=== PATIENT | male | born 1955 | race Caucasian/White ===

== ENCOUNTER 2022-06-22 04:03 | Emergency (ER) | payer OTHER, MEDICARE, SELFPAY ==
--- NOTE | ~2022-06-22 | CT_ITS ---
EXAMINATION: CT ABDOMEN AND PELVIS WITH CONTRAST CLINICAL INFORMATION: Lower abdomen pain. Clinical concern for diverticulitis COMPARISON: None available. TECHNIQUE: Multidetector volumetric images were obtained from the superior aspect of the liver through the pubic symphysis following administration 85 mL of Omnipaque 350 intravenous contrast. Sagittal and coronal reformatted images were obtained on the technologist's workstation. Oral contrast: No This CT examination was performed using dose optimization techniques as appropriate, variously including the following: *Automated exposure control *Adjustment of mA and/or kV according to patient size (this includes techniques or standardized protocols for targeted exams where dose is matched to indication/reason for exam; i.e. extremities or head) *Use of iterative reconstruction technique DLP: 814 mGy-cm FINDINGS: LUNG BASES: No suspicious abnormality in the visualized lower chest LIVER, GALLBLADDER, AND BILIARY TREE: There is a 0.6 cm low attenuating lesion close to the capsular surface in the posterolateral aspect of hepatic segment 6 (series 3, image 25). This is too small to characterize. In the absence of underlying chronic liver disease or known primary malignancy this does not require any further evaluation. There is no opaque gallstone. No biliary dilation PANCREAS: No suspicious abnormality SPLEEN: Within normal limits ADRENAL GLANDS: Mild generalized prominence of the adrenal glands. This could be related to hyperplasia. KIDNEYS AND URETERS: There is equivocal mild fullness of the intrarenal collecting system on the left. There is a punctate calcification in the retroperitoneum on the left (series 4, image 388). This is close to the expected region of the ureter but could be a phlebolith. There is equivocal slight decrease in the intensity of the nephrogram on the left relative to the right. This is not a definite finding There is a 0.2 cm nonobstructing calculus at the junction of the upper pole and interpolar left kidney 11.6 cm from the skin There are multiple circumscribed small round low attenuating masses in each kidney. Statistically these represent cysts. No suspicious solid renal mass. There is some perinephric fat stranding greater on the left BLADDER: The bladder wall is thickened. The bladder floor is indented by the prostate GASTROINTESTINAL TRACT: There is gas and fecal residue throughout the colon. No localized pericolonic fat stranding. There are some sigmoid diverticula. There is no definite evidence of an abscess or CT evidence of acute appendicitis. There are some mildly to moderately distended fluid-filled small bowel loops without a definite zone of transition. No definite abnormality of the stomach. There is a probable diverticulum in the medial aspect of the second portion of the duodenum ABDOMINAL WALL: No significant hernia is appreciated. LYMPH NODES: There are no measurably enlarged abdominal or pelvic lymph nodes VASCULAR: There is no abdominal aortic aneurysm. The portal vein enhances. The central portion of the visceral branches of the aorta opacify. PELVIC VISCERA: The prostate is enlarged and indents upon the bladder. OSSEOUS STRUCTURES: No suspicious focal lesion CT/CT abdomen pelvis w IV con IMPRESSION: There are no convincing acute findings. There are some equivocal subtle findings. There are some nonspecific dilated small bowel loops. No evidence of high-grade obstruction or ischemia. There is a punctate nonobstructing left renal calculus. There is a punctate calcification in the left retroperitoneum near the expected region of the ureter. There is slight perinephric fat stranding on the left and equivocal diminished nephrogram on the left. Correlate with any evidence of recent stone passage Fleischner guidelines were followed.
[2022-06-22 04:51] LABS: Basophils Absolute Auto 0.1 X10*3/uL (0.0-0.2); Basophils Percent Auto 0.4 % (0-2); Eosinophils Percent Auto 0.2 % (0-4); Hematocrit 54.6 % (42.0-52.0); Hemoglobin 19.1 g/dl (14.0-18.0); Imm Gran Pct Auto 0.7 % (0.0-0.4); Lymphocytes Absolute Auto 1.3 X10*3/uL (1.2-4.9); Lymphocytes Percent Auto 9.2 % (20-40); MANUAL DIFF FLAG NO; Mean Corpuscular Hemoglobin 29.8 pg (27.0-33.0); Mean Corpuscular Volume 85.3 fL (80.0-98.0); Mean Platelet Volume 10.2 fL (9.4-12.4); Monocytes Percent Auto 6.7 % (2-11); Neutrophils Absolute Auto 12.1 x10*3/uL (2.0-8.3); Neutrophils Percent Auto 82.8 % (45-73); Platelet Count 221 X10*3/uL (160-400); Red Cell Distribution Width 13.4 % (11.0-16.0); White Blood Count 14.6 X10*3/uL (4.8-10.8)
[2022-06-22 05:16] LABS: Anion Gap 17 (12-20); Blood Urea Nitrogen 20 mg/dL (9-16); Calcium 9.3 mg/dL (8.4-10.2); Carbon Dioxide 19 mmol/L (22-29); Chloride 103 mmol/L (96-108); Estimated Glomerular Filt Rate 59; Glucose Random 188 mg/dL (60-115); Potassium 4.6 mmol/L (3.3-5.1); Sodium 134 mmol/L (135-145)
[2022-06-22 05:17] VITALS: BP 140/71; PULSE 63; RESP 22; TEMP 36.7; O2SAT 96; BMI 36.5
[2022-06-22 05:35] VITALS: BP 197/97; PULSE 68; RESP 18; TEMP 37; O2SAT 95
[2022-06-22] MEDS: ondansetron HCL 4 MG/2 ML VIAL IVPUSH (06:18)
[2022-06-22] MEDS: Morphine Sulfate 4 MG/ML CARTRIDGE IVPUSH (06:18)
[2022-06-22] MEDS: 0.9 % Sodium Chloride 1,000 ML 999 ML IV (06:18)
[2022-06-22 06:29] LABS: Alanine Aminotransferase 32 U/L (0-40); Albumin Level 4.2 g/dL (3.5-5.0); Alkaline Phosphatase 63 U/L (39-117); Aspartate Amino Transferase 18 U/L (5-37); Bilirubin Direct 0.2 mg/dL (0.0-0.5); Bilirubin Total 0.7 mg/dL (0.0-1.0); Lipase 44 U/L (8-78); Total Protein 6.8 g/dL (6.5-8.0)
[2022-06-22 06:40] LABS: Lactic Acid 1.5 mmol/L (0.5-2.0)
--- NOTE | 2022-06-22 07:05 | ED_ITS ---
HPI - Abdominal Pain General Chief Complaint: Abdominal Pain Stated Complaint: stomach pain Time Seen by Provider: 06/22/22 06:33 Source: patient and RN notes reviewed Mode of arrival: ambulatory Limitations: no limitations History of Present Illness HPI narrative: This is a [id number]-male, with a past medical history of hypertension, hyperlipidemia, and CVA, who presents to the emergency department with compla ints of left sided abdominal pain which started at 06:00PM last night. Patient reports that the abdominal pain is constant, and worsens with positional changes. He feels as though he is bloated. He denies any fevers or chills. Admits to having intermittent nausea, denies vomiting. Last BM was yesterday, small and somewhat soft. Denies any hx of abdominal surgeries. His last colonoscopy was greater than 10 years ago, but was normal. He drinks alcohol very rarely. He has a >40 pack year history. Denies headache, dizziness, chest pain, palpitations, shortness of breath. No other complaints or concerns at this time. MD elicited complaint: abdominal pain Pertinent past history: constipation Onset (ago): hour(s) Pain Consistency: constant Location: LUQ Severity: severe Quality: aching and fullness Radiation: none Migration to: no migration Exacerbating factors: movement Relieving factors: rest Associated symptoms: constipation Related Data Allergies Allergy/AdvReac Type Severity Reaction Status Date / Time No Known Allergies Allergy Unverified 11/07/19 15:41 [No Known Allergies*] Review of Systems Review of Systems Constitutional: No Weight loss, No Fever, No Chills, No Night Sweats, No Fatigue, No Malaise ENT/Mouth: No Hearing loss, No Ear Pain, No Nasal Congestion, No Sinus Pain, No Hoarseness, No sore throat, No Rhinorrhea, No Swallowing Difficulty Eyes: No Eye Pain, No Swelling, No Redness, No Foreign Body, No Discharge, No Vision Changes Cardiovascular: No Chest Pain, No SOB, No Dyspnea on Exertion, No Orthopnea, No Edema, No Palpitations Respiratory: No Cough, No Sputum, No Wheezing, No Smoke Exposure, No Dyspnea Gastrointestinal: + Nausea, No Vomiting, No Diarrhea, + Constipation, + Abdominal pain, No Hematochezia, No Melena Genitourinary: No irregular bleeding, No Dysuria, No Urinary Frequency, No Hematuria, No Urinary Incontinence/retention, No Urgency, No Flank Pain, No Urinary Flow Changes, No Hesitancy Musculoskeletal: No joint pain, No Myalgias, No Joint Swelling Skin: No Skin Lesions, No rash Neuro: No Weakness, No Numbness, No Paresthesias, No Loss of Consciousness, No Dizziness, No Headache Psych: No Anxiety/Panic, No Depression, No SI/HI/AH/VH, No Social Issues, Heme/Lymph: No Bruising, No Bleeding,No Lymphadenopathy Endocrine: No Polyuria, No Polydipsia, No Temperature Intolerance Yes all other systems are reviewed and are negative Constitutional: Reports as per [facility] Past Medical History Attestation statement: The following information was validated with the patient. Social History Social History Alcohol intake: never Smoked in Last 30 Days: No Use of substances other than those prescribed or required for medical reasons: No Advance Directives: No Advance Directives Information Provided: Yes Physical Exam ED Vital Signs: Vital Signs - 24 hr 06/22/22 05:17 06/22/22 05:35 06/22/22 07:26 Temperature 98.0 F 98.6 F Pulse Rate 63 68 67 Respiratory Rate 22 H 18 12 Blood Pressure 140/71 H 197/97 H 176/72 H Pulse Oximetry 96 95 95 Oxygen Delivery Method Room Air Room Air Room Air 06/22/22 10:41 Temperature Pulse Rate 68 Respiratory Rate 14 Blood Pressure 147/59 H Pulse Oximetry 95 Oxygen Delivery Method Room Air BMI result Body Mass Index 36.5 Const General: cooperative, comfortable and no acute distress Orientation/consciousness: patient oriented x3 Limitations: no limitations [facility] Head: Yes normal to inspection, Yes normocephalic and Yes atraumatic Ears: hearing grossly normal bilaterally General nose exam: Normal external nose present Face and sinus: Yes normal facial exam Mouth: Normal oral and palatal mucosa present, oropharynx normal and moist mucous membranes Throat: Yes posterior oropharynx normal Eyes General: appearance normal, both eyes and all related structures Eyelids: Yes eyelids normal Conjunctivae: conjunctivae normal Sclerae: sclerae normal Pupils: Equal, round and reactive pupils present EOM: EOMs intact bilaterally Neck Neck: Yes normal visual inspection, Yes full ROM and Yes no lymphadenopathy Lymphatic: no lymphadenopathy noted Chest Chest palpation & inspection: normal inspection of the chest Resp Effort & Inspection: normal respiratory effort and able to speak in complete sentences Auscultation: clear to auscultation bilaterally, no crackles, no rales, no rhonchi and no wheezes Cardio Rate: regular rate Rhythm: regular rhythm Heart sounds: S1 normal heart sound present and S2 normal heart sound present GI Other: Abdomen is soft, distended, with mild tenderness to palpation in the left upper quadrant. No rebound or guarding. Inspection: Yes normal to inspection Auscultation: High-pitched bowel sounds present and Hypoactive bowel sounds present Skin General skin exam: no rashes or lesions noted Trauma: no lacerations or abrasions Wounds: no wounds Neuro General: patient oriented x3 and moves all extremities Cranial nerves: Yes Equal, round and reactive pupils present Extrem General: Yes normal to inspection Right upper extremity: normal to inspection Left upper extremity: normal to inspection Right lower extremity: normal to inspection Left lower extremity: normal to inspection Course Reevaluation(s) Reevaluation #1: Mild leukocytosis noted at 14.6, H&H 19.1/54. Electrolytes WNL, UA revealing large blood, trace leukocytes. CT abdomen revealing punctate nonobstructing left renal calculus, and a punctate calcification in the left retroperitoneum near the expected region of the ureter, likely evidence for recent passage of kidney stones. Discussed these findings with patient and at bedside. Re-evaluated patient, patient reporting some distention and fullness in his abdomen. Will PO trial and re-evaluate. Time: 08:30 Reevaluation #2: Pt re-evaluated after PO trial. Patient is feeling much better, tolerated PO without any nausea or vomiting. Vital signs stable. Abdomen is soft, nontender diffusely. Pt requesting for discharge. Discussed with patient red flag symptoms, pt understands and agrees with plan. Advised to return with any new or worsening symptoms. Advised to f/u with PCP. Patient stable for discharge. Time: 10:00 Medical Decision Making Medical Decision Making MDM Narrative: This is a [id number]-male, hx of HTN, HLD, CVA, who presents to the emergency department with complaints of left sided abdominal pain since last night. On exam, patient is mildly hypertensive at 163/94, afebrile, with a pulse of 68bpm. Abdomen is distended but soft, with some mild TTP in the left upper abdomen. No rebound or guarding. High pitched bowel sounds noted in the right upper quadrant. Patient is nontoxic appearing and appears comfortable. Plan: Labs, 1L IV fluids, Morphine 4mg, Zofran 4mg IV ordered. Differential Diagnosis Differential Diagnoses: The differential diagnosis associated with the pr esentation includes Constipation, bowel obstruction, diverticulitis, diverticulosis, peritonitis - less likely, UTI, hydronephrosis Admission/Observation Consideration of admission/observation: Escalation of care including admi ssion/observation considered Lab Data MDM Lab Attestation statement: I reviewed the patient's lab results. 06/22/22 04:36 06/22/22 04:36 Labs: Lab Results 06/22/22 06/22/22 06/22/22 Range/Units 04:36 04:36 06:18 WBC 14.6 H (4.8-10.8) X10*3/uL RBC 6.40 H (4.60-5.80) X10*6/uL Hgb 19.1 H (14.0-18.0) g/dl Hct 54.6 H (42.0-52.0) % MCV 85.3 (80.0-98.0) fL MCH 29.8 (27.0-33.0) pg MCHC 35.0 (31.0-36.0) g/dl RDW 13.4 (11.0-16.0) % Plt Count 221 (160-400) X10*3/uL MPV 10.2 (9.4-12.4) fL Immature Gran % (Auto) 0.7 H (0.0-0.4) % Neut % (Auto) 82.8 H (45-73) % Lymph % (Auto) 9.2 L (20-40) % [place] % (Auto) 6.7 (2-11) % Eos % (Auto) 0.2 (0-4) % Baso % (Auto) 0.4 (0-2) % Lymph # (Auto) 1.3 (1.2-4.9) X10*3/uL [place] # (Auto) 1.0 (0.1-1.2) X10*3/uL Eos # (Auto) 0.0 (0.0-0.4) X10*3/uL Baso # (Auto) 0.1 (0.0-0.2) X10*3/uL Abs Immat Gran (auto) 0.10 H (0.00-0.03) X10*3/uL Absolute Neuts (auto) 12.1 H (2.0-8.3) x10*3/uL Absolute Nucleated RBC 0.000 (0.0-0.012) X10*3/uL Nucleated RBC % (auto) 0.0 (0.0-0.2) /100WBC Sodium 134 L (135-145) mmol/L Potassium 4.6 (3.3-5.1) mmol/L Chloride 103 (96-108) mmol/L Carbon Dioxide 19 L (22-29) mmol/L Anion Gap 17 (12-20) BUN 20 H (9-16) mg/dL Creatinine 1.23 (0.5-1.4) mg/dL Estim Creat Clear Calc TNP Estimated GFR 59 Random Glucose 188 H (60-115) mg/dL Lactic Acid 1.5 (0.5-2.0) mmol/L Calcium 9.3 (8.4-10.2) mg/dL Total Bilirubin 0.7 (0.0-1.0) mg/dL Direct Bilirubin 0.2 (0.0-0.5) mg/dL AST 18 (5-37) U/L ALT 32 (0-40) U/L Alkaline Phosphatase 63 (39-117) U/L Total Protein 6.8 (6.5-8.0) g/dL Albumin 4.2 (3.5-5.0) g/dL Lipase 44 (8-78) U/L Urine Color Urine Appearance Urine pH (5.0-9.0) Ur Specific Vivian (1.005-1.025) Urine Protein (Neg-Trace) mg/dL Urine Glucose (UA) (Negative) mg/dL Urine Ketones (Negative) mg/dL Urine Blood (Negative) Urine Nitrite (Negative) Ur Leukocyte Esterase (Negative) Urine RBC (0-2) /HPF Urine WBC (0-5) /HPF Ur Squamous Epith Cells (0-2) /HPF Urine Bacteria (None Seen) Hyaline Casts (0-2) /LPF 06/22/22 Range/Units 07:28 WBC (4.8-10.8) X10*3/uL RBC (4.60-5.80) X10*6/uL Hgb (14.0-18.0) g/dl Hct (42.0-52.0) % MCV (80.0-98.0) fL MCH (27.0-33.0) pg MCHC (31.0-36.0) g/dl RDW (11.0-16.0) % Plt Count (160-400) X10*3/uL MPV (9.4-12.4) fL Immature Gran % (Auto) (0.0-0.4) % Neut % (Auto) (45-73) % Lymph % (Auto) (20-40) % [place] % (Auto) (2-11) % Eos % (Auto) (0-4) % Baso % (Auto) (0-2) % Lymph # (Auto) (1.2-4.9) X10*3/uL [place] # (Auto) (0.1-1.2) X10*3/uL Eos # (Auto) (0.0-0.4) X10*3/uL Baso # (Auto) (0.0-0.2) X10*3/uL Abs Immat Gran (auto) (0.00-0.03) X10*3/uL Absolute Neuts (auto) (2.0-8.3) x10*3/uL Absolute Nucleated RBC (0.0-0.012) X10*3/uL Nucleated RBC % (auto) (0.0-0.2) /100WBC Sodium (135-145) mmol/L Potassium (3.3-5.1) mmol/L Chloride (96-108) mmol/L Carbon Dioxide (22-29) mmol/L Anion Gap (12-20) BUN (9-16) mg/dL Creatinine (0.5-1.4) mg/dL Estim Creat Clear Calc Estimated GFR Random Glucose (60-115) mg/dL Lactic Acid (0.5-2.0) mmol/L Calcium (8.4-10.2) mg/dL Total Bilirubin (0.0-1.0) mg/dL Direct Bilirubin (0.0-0.5) mg/dL AST (5-37) U/L ALT (0-40) U/L Alkaline Phosphatase (39-117) U/L Total Protein (6.5-8.0) g/dL Albumin (3.5-5.0) g/dL Lipase (8-78) U/L Urine Color Yellow Urine Appearance Clear Urine pH 6.0 (5.0-9.0) Ur Specific Vivian 1.015 (1.005-1.025) Urine Protein 30 (1+) H (Neg-Trace) mg/dL Urine Glucose (UA) 100 H (Negative) mg/dL Urine Ketones 15 (Negative) mg/dL Urine Blood Large (3+) H (Negative) Urine Nitrite Negative (Negative) Ur Leukocyte Esterase Trace H (Negative) Urine RBC >20 H (0-2) /HPF Urine WBC 0-5 (0-5) /HPF Ur Squamous Epith Cells 0-2 (0-2) /HPF Urine Bacteria None Seen (None Seen) Hyaline Casts 3-5 (0-2) /LPF Radiology Impression Discussion of test interpretation with radiology: I have reviewed the radiologi st's reading. Radiologist Impression: EXAMINATION: CT ABDOMEN AND PELVIS WITH CONTRAST? CLINICAL INFORMATION: Lower abdomen pain. Clinical concern for diverticulitis? COMPARISON: None available. TECHNIQUE: Multidetector volumetric images were obtained from the superior aspect of the liver through the pubic symphysis following administration 85 mL of Omnipaque 350 intravenous contrast. Sagittal and coronal reformatted images were obtained on the technologist's workstation.? Oral contrast: No This CT examination was performed using dose optimization techniques as appropriate, variously including the following: *Automated exposure control *Adjustment of mA and/or kV according to patient size (this includes techniques or standardized protocols for targeted exams where dose is matched to indication/reason for exam; i.e. extremities or head) *Use of iterative reconstruction technique DLP: 814 mGy-cm FINDINGS: LUNG BASES: No suspicious abnormality in the visualized lower chest? LIVER, GALLBLADDER, AND BILIARY TREE: There is a 0.6 cm low attenuating lesion close to the capsular surface in the posterolateral aspect of hepatic segment 6 (series 3, image 25). This is too small to characterize. In the absence of underlying chronic liver disease or known primary malignancy this does not require any further evaluation. There is no opaque gallstone. No biliary dilation? PANCREAS: No suspicious abnormality? SPLEEN: Within normal limits? ADRENAL GLANDS: Mild generalized prominence of the adrenal glands. This could be related to hyperplasia.? KIDNEYS AND URETERS: There is equivocal mild fullness of the intrarenal collecting system on the left. There is a punctate calcification in the retroperitoneum on the left (series 4, image 388). This is close to the expected region of the ureter but could be a phlebolith. There is equivocal slight decrease in the intensity of the nephrogram on the left relative to the right. This is not a definite finding There is a 0.2 cm nonobstructing calculus at the junction of the upper pole and interpolar left kidney 11.6 cm from the skin There are multiple circumscribed small round low attenuating masses in each kidney. Statistically these represent cysts. No suspicious solid renal mass. There is some perinephric fat stranding greater on the left BLADDER: The bladder wall is thickened. The bladder floor is indented by the prostate? GASTROINTESTINAL TRACT: There is gas and fecal residue throughout the colon. No localized pericolonic fat stranding. There are some sigmoid diverticula. There is no definite evidence of an abscess or CT evidence of acute appendicitis. There are some mildly to moderately distended fluid-filled small bowel loops without a definite zone of transition. No definite abnormality of the stomach. There is a probable diverticulum in the medial aspect of the second portion of the duodenum ? ABDOMINAL WALL: No significant hernia is appreciated.? LYMPH NODES: There are no measurably enlarged abdominal or pelvic lymph nodes VASCULAR: There is no abdominal aortic aneurysm. The portal vein enhances. The central portion of the visceral branches of the aorta opacify. PELVIC VISCERA: The prostate is enlarged and indents upon the bladder. OSSEOUS STRUCTURES: No suspicious focal lesion? CT/CT abdomen pelvis w IV con IMPRESSION: There are no convincing acute findings. There are some equivocal subtle findings. ? There are some nonspecific dilated small bowel loops. No evidence of high-grade obstruction or ischemia. ? There is a punctate nonobstructing left renal calculus. ? There is a punctate calcification in the left retroperitoneum near the expected region of the ureter. There is slight perinephric fat stranding on the left and equivocal diminished nephrogram on the left. Correlate with any evidence of recent stone passage? ? Fleischner guidelines were followed. Dictated By: Chon Jose MD Signed By: <Electronically signed by Chon Jose MD in OV> 06/22/22 0816 DD/ 0759 TD/TT:? Pharmacognosist: VINICIO External Record Review External record reviewed: Inpatient record, Office record, Outpatient record, Prior outpatient labs, Prior outpatient radiology, Primary care record and Outside ED record Medications Administered Discontinued Medications Generic Name Dose Route Start Last Admin Trade Name Freq PRN Reason Stop Dose Admin Sodium Chloride 1,000 mls @ 999 mls/hr 06/22/22 06:07 06/22/22 06:18 Ns IV 06/22/22 07:07 999 mls/hr .Q1H1M ONE Administration Iohexol 100 ml 06/22/22 08:00 06/22/22 08:00 Iohexol 350 Mg/Ml 100 Ml Infus..Btl IV 06/22/22 08:01 85 ml ONCE ONE Administration Morphine Sulfate 4 mg 06/22/22 06:07 06/22/22 06:18 Morphine Sulfate 4 Mg/Ml Cartridge IVPUSH 06/22/22 06:08 4 mg ONCE ONE Administration Protocol Ondansetron HCl 4 mg 06/22/22 06:07 06/22/22 06:18 Ondansetron Hcl 4 Mg/2 Ml Vial IVPUSH 06/22/22 06:08 4 mg ONCE ONE Administration Discharge Plan Discharge Clinical Impression: Abdominal pain, Kidney stone Patient Disposition: Home, Self-Care Instructions: Kidney Stones (ED), Abdominal Pain (ED) Additional Instructions: Your CT scan performed today showed evidence that you passed a kidney stone. Please stay very hydrated over the next few days. A bland diet may also help with your symptoms. If any new or worsening symptoms occur, including but not limited to fevers, chills, worsening abdominal pain, nausea, vomiting, unable to urinate, please return for re-evaluation. Follow up with your primary care physician. Interventions: ED Discharge Assessment Last Done: 06/22/22 10:42 Discharge Date/Time: 06/22/22 10:42
[2022-06-22 07:26] VITALS: BP 176/72; PULSE 67; RESP 12; O2SAT 95
[2022-06-22 07:40] LABS: Appearance Urine Clear; Color Urine Yellow; Glucose Urine UA 100 mg/dL (Negative); Leukocyte Esterase Urine Trace (Negative); Nitrite Urine Negative (Negative); Specific Gravity - Urine 1.015 (1.005-1.025); UMIC TRIGGER UACC YES; Urine Blood Large (3+) (Negative); Urine Ketones 15 mg/dL (Negative); Urine Protein 30 (1+) mg/dL (Neg-Trace)
[2022-06-22 07:45] LABS: Bacteria Urine None Seen (None Seen); RBC Urine >20 /HPF (0-2); Squamous Epithelial Cell Urine 0-2 /HPF (0-2); WBC Urine 0-5 /HPF (0-5)
[2022-06-22] MEDS: iohexoL 350 MG/ML 100 ML INFUS..BTL IV (08:00)
--- NOTE | 2022-06-22 08:12 | PC.NURSE ---
alert, nad, skin wpd, no complaints, abd pain gone, ct complete and awaiting results
[2022-06-22 10:41] VITALS: BP 147/59; PULSE 68; RESP 14; O2SAT 95
== END 2022-06-22 10:42 | disposition home or self-care (01) ==
PROVIDERS: Emergency Provider Internal Medicine
DX: N20.0 Calculus of kidney (principal); R10.9 Unspecified abdominal pain; I10 Essential (primary) hypertension; E78.5 Hyperlipidemia, unspecified; Z86.73 Personal history of transient ischemic attack (TIA), and cerebral infarction without residual deficits
CPT/HCPCS: 36415; 74177; 80048; 80076; 81001; 83605; 83690; 85025; 96374; 96375; 99284; J2270; J2405; Q9967

== ENCOUNTER 2022-06-25 08:41 | Emergency (ER) | payer OTHER, MEDICARE, SELFPAY ==
[2022-06-25 08:45] VITALS: BP 165/67; PULSE 62; RESP 18; TEMP 36.4; O2SAT 98; BMI 35.4
--- NOTE | 2022-06-25 08:53 | ED.ABDPAIN ---
HPI - Abdominal Pain General Chief Complaint: Abdominal Pain Stated Complaint: Stomach hard, kidney stones? Time Seen by Provider: 06/25/22 08:53 Source: patient Mode of arrival: ambulatory Limitations: no limitations History of Present Illness HPI narrative: [id number], with a past medical history of hypertension, hyperlipidemia, and CVA who presents to the ER for evaluation of left upper abdominal pain that started around 4-5 am today. He states it came on gradually and has been persistent since then. He states it feels the same as when he was here on 06/22. He had a CT scan and UA showing signs of a recently passed kidney stone. He had another punctate stone in the kidney seen on imaging. He was initially feeling better until the came back this morning. He denies any assoicated N/V/D, he had a normal BM this morning. No current urinary symptoms. No chest pain or SOB. No back pain. MD elicited complaint: abdominal pain Pertinent past history: kidney stones Onset (ago): hour(s) (5) Pain Consistency: constant Location: LUQ Severity: moderate Pain scale (0-10): 7 Quality: stabbing, aching and fullness Radiation: epigastric Migration to: no migration Relieving factors: nothing Context: history of similar episodes Related Data Previous Rx's Medication Instructions Recorded hydrocodone 5 mg-acetaminophen 325 1 tab PO BID PRN severe pain 06/25/22 mg tablet (scale score 7-10) #5 tabs ibuprofen 600 mg tablet 600 mg PO Q8H PRN pain #10 tabs 06/25/22 ondansetron 4 mg disintegrating 4 mg PO Q8H PRN nausea and 06/25/22 tablet vomiting #7 tabs tamsulosin 0.4 mg capsule (Flomax) 0.4 mg PO BEDTIME #14 caps 06/25/22 Allergies Allergy/AdvReac Type Severity Reaction Status Date / Time No Known Allergies Allergy Verified 06/25/22 08:44 [No Known Allergies*] Review of Systems Review of Systems Yes all other systems are reviewed and are negative [facility] Social History Social History Alcohol intake: former Smoked in Last 30 Days: Yes Use of substances other than those prescribed or required for medical reasons: No Advance Directives: No Advance Directives Information Provided: Yes Physical Exam ED Vital Signs: Vital Signs - 24 hr 06/25/22 08:45 06/25/22 09:03 06/25/22 10:48 Temperature 97.5 F 97.8 F Pulse Rate 62 90 108 H Respiratory Rate 18 18 20 Blood Pressure 165/67 H 149/69 H 172/77 H Pulse Oximetry 98 96 94 Oxygen Delivery Method Room Air Room Air Room Air 06/25/22 11:37 06/25/22 12:30 Temperature 97.9 F Pulse Rate 66 62 Respiratory Rate 17 17 Blood Pressure 140/64 H 156/59 H Pulse Oximetry 92 92 Oxygen Delivery Method Room Air Room Air BMI result Body Mass Index 35.4 Appearance: Alert. Oriented X3. No acute distress. Head: normocephalic, atraumatic. Eyes: Pupils equal, round and reactive to light. ENT: Pharynx normal. No tonsillar swelling or exudate. Neck: Normal inspection. Neck supple. CVS: Normal heart rate and rhythm. Pulses normal. Respiratory: No respiratory distress. Breath sounds normal. Abdomen: Obese, Softly distended, mild LUQ tenderness to deep palpation, decreased but present +BS x4. NO CVA tenderness bilaterally Skin: Skin warm and dry. Normal skin color. Normal skin turgor. No rashes. Extremities: No lower extremity edema. No joint swelling. Neuro/psych: Oriented X 3. No motor deficit. No sensory deficit. CN II-XII intact. Normal speech and cognition. Course Reevaluation(s) Reevaluation #1: patient feeling better. UA with moderate blood. his symptoms are most likely due to punctate kidney stone seen on recent CT. no flank pain to suggest hydro. no infection he would like to go home. pain improved. stable for d/c home with PO meds PRN and urology follow up Medical Decision Making Medical Decision Making MDM Narrative: 67 yo male with history of HTN, CVA, HLD, recently passed kidney stone last week presents back to the ER with similar pain in his LUQ that started at 4-5am today. Pain similar to when he just passed a kidney stone. CT showed punctate stone in the kidney on the left side. His UA has moderate blood, no infection. His pain is improved after morphine and toradol. Will hold off on repeat imaging for now given he recently had CT scan, kidney function normal and symptoms improved with meds. Stable for d/c home with pain control and urology follow up. all questions answered. return precautions were discussed. Differential Diagnosis Differential Diagnoses: The differential diagnosis associated with the presentation includes kidney stone, pyelonephritis, UTI, indigestion, GERD, gastritis Lab Data MDM Lab Attestation statement: I reviewed the patient's lab results. 06/25/22 09:29 06/25/22 09:29 Labs: Lab Results 06/25/22 06/25/22 06/25/22 Range/Units 09: 09:29 10:23 WBC 8.5 (4.8-10.8) X10*3/uL RBC 6.25 H (4.60-5.80) X10*6/uL Hgb 18.3 H (14.0-18.0) g/dl Hct 53.1 H (42.0-52.0) % MCV 85.0 (80.0-98.0) fL MCH 29.3 (27.0-33.0) pg MCHC 34.5 (31.0-36.0) g/dl RDW 13.1 (11.0-16.0) % Plt Count 201 (160-400) X10*3/uL MPV 10.1 (9.4-12.4) fL Immature Gran % (Auto) 0.6 H (0.0-0.4) % Neut % (Auto) 75.0 H (45-73) % Lymph % (Auto) 14.8 L (20-40) % [place] % (Auto) 7.9 (2-11) % Eos % (Auto) 1.1 (0-4) % Baso % (Auto) 0.6 (0-2) % Lymph # (Auto) 1.3 (1.2-4.9) X10*3/uL [place] # (Auto) 0.7 (0.1-1.2) X10*3/uL Eos # (Auto) 0.1 (0.0-0.4) X10*3/uL Baso # (Auto) 0.1 (0.0-0.2) X10*3/uL Abs Immat Gran (auto) 0.05 H (0.00-0.03) X10*3/uL Absolute Neuts (auto) 6.4 (2.0-8.3) x10*3/uL Absolute Nucleated RBC 0.000 (0.0-0.012) X10*3/uL Nucleated RBC % (auto) 0.0 (0.0-0.2) /100WBC Sodium 134 L (135-145) mmol/L Potassium 5.0 (3.3-5.1) mmol/L Chloride 100 (96-108) mmol/L Carbon Dioxide 27 (22-29) mmol/L Anion Gap 12 (12-20) BUN 14 (9-16) mg/dL Creatinine 1.02 (0.5-1.4) mg/dL Estim Creat Clear Calc 87.7 Estimated GFR > 60 Random Glucose 163 H (60-115) mg/dL Calcium 9.1 (8.4-10.2) mg/dL Magnesium 1.9 (1.6-2.6) mg/dL Total Bilirubin 0.6 (0.0-1.0) mg/dL Direct Bilirubin 0.2 (0.0-0.5) mg/dL AST 20 (5-37) U/L ALT 32 (0-40) U/L Alkaline Phosphatase 60 (39-117) U/L Total Protein 6.5 (6.5-8.0) g/dL Albumin 3.9 (3.5-5.0) g/dL Lipase 46 (8-78) U/L Urine Color Yellow Urine Appearance Clear Urine pH 6.0 (5.0-9.0) Ur Specific [place] 1.020 (1.005-1.025) Urine Protein 30 (1+) H (Neg-Trace) mg/dL Urine Glucose (UA) Negative (Negative) mg/dL Urine Ketones Negative (Negative) mg/dL Urine Blood Moderate (2+) H (Negative) Urine Nitrite Negative (Negative) Ur Leukocyte Esterase Trace H (Negative) Urine RBC 6-10 H (0-2) /HPF Urine WBC 0-5 (0-5) /HPF Ur Squamous Epith Cells 0-2 (0-2) /HPF Urine Bacteria None Seen (None Seen) Hyaline Casts 0-2 (0-2) /LPF Independent Interpretation I performed an independent interpretation of an: CT Scan Radiology Impression Discussion of test interpretation with radiology: I have reviewed the radiologist's reading. Radiologist Impression: CT/CT abdomen pelvis w IV con from 06/22/22 IMPRESSION: There are no convincing acute findings. There are some equivocal subtle findings. ? There are some nonspecific dilated small bowel loops. No evidence of high-grade obstruction or ischemia. ? There is a punctate nonobstructing left renal calculus. ? There is a punctate calcification in the left retroperitoneum near the expected region of the ureter. There is slight perinephric fat stranding on the left and equivocal diminished nephrogram on the left. Correlate with any evidence of recent stone passage? Independent Historian Clinical information obtained from an independent historian. History obtained from or confirmed by: Spouse External Record Review External record reviewed: Outpatient record, Prior outpatient labs and Prior outpatient radiology Prescription Management I considered prescription management with: Pain Medication Chronic Conditions Patient?s care impacted by: Hypertension Medications Administered Discontinued Medications Generic Name Dose Route Start Last Admin Trade Name Freq PRN Reason Stop Dose Admin Sodium Chloride 1,000 mls @ 999 mls/hr 06/25/22 09:15 06/25/22 10:47 Ns IVCONT 06/25/22 10:15 Infused .Q1H1M AYLA Infusion Ketorolac Tromethamine 15 mg 06/25/22 10:48 06/25/22 11:45 Ketorolac Tromethamine 15 Mg/Ml Vial IVPUSH 06/25/22 10:49 15 mg ONCE ONE Administration Morphine Sulfate 4 mg 06/25/22 09:02 06/25/22 09:28 Morphine Sulfate 4 Mg/Ml Cartridge IVPUSH 06/25/22 09:03 4 mg ONCE ONE Administration Protocol Morphine Sulfate 4 mg 06/25/22 10:23 06/25/22 10:45 Morphine Sulfate 4 Mg/Ml Cartridge IVPUSH 06/25/22 10:24 4 mg ONCE ONE Administration Protocol Ondansetron HCl 4 mg 06/25/22 09:24 06/25/22 09:28 Ondansetron Hcl 4 Mg/2 Ml Vial IVPUSH 06/25/22 09:25 4 mg ONCE ONE Administration Critical Care Time Critical Care Time Critical Care Time: Yes Total Critical Care Time: 35 Attestation: I have personally provided critical care time exclusive of time spent on separately billable procedures. Time includes review of lab data, radiology results, multiple doses of IV narcotics requiring frequent bedside reassessment of cariopulmonary status, and monitoring for potential decompensation. Intervention performed as documented. Discharge Plan Discharge Clinical Impression: Abdominal pain, Hematuria Patient Disposition: Home, Self-Care Instructions: Kidney Stones (ED), Abdominal Pain (ED) Additional Instructions: Your lab workup was unremarkable. Your urine test showed some blood. Your pain is most likely due to another kidney stone passing down into your ureter to your bladder. Your CT scan from the other day showed it was very small. You will likely pass the stone on your own. Take the prescribed medications to help with your symptoms. Stay hydrated and drink plenty of water. Recommend following up with Urology next week - call for an appointment. If you develop new or worsening symptoms call 911 or come back to the ER for further evaluation. Prescriptions: New tamsulosin [Flomax] 0.4 mg capsule 0.4 mg PO BEDTIME Qty: 14 0RF ondansetron 4 mg tablet,disintegrating 4 mg PO Q8H PRN (Reason: nausea and vomiting) Qty: 7 0RF ibuprofen 600 mg tablet 600 mg PO Q8H PRN (Reason: pain) Qty: 10 0RF hydrocodone-acetaminophen 5-325 mg tablet 1 tab PO BID PRN (Reason: severe pain (scale score 7-10)) Qty: 5 0RF Rx Instructions: Partial Fill upon patient request. Referrals: [facility] – [place] Urology Services [Provider Group] Interventions: ED Discharge Assessment Last Done: 06/25/22 13:16 Discharge Date/Time: 06/25/22 13:17
[2022-06-25 09:03] VITALS: BP 149/69; PULSE 90; RESP 18; TEMP 36.6; O2SAT 96
[2022-06-25] MEDS: Morphine Sulfate 4 MG/ML CARTRIDGE IVPUSH ×2 (09:28→10:45)
[2022-06-25] MEDS: ondansetron HCL 4 MG/2 ML VIAL IVPUSH (09:28)
[2022-06-25] MEDS: 0.9 % Sodium Chloride 1,000 ML 999 ML IVCONT (09:28)
[2022-06-25 09:32] LABS: MANUAL DIFF FLAG NO
--- NOTE | 2022-06-25 09:33 | PC.NURSE ---
Alert and oriented x 3. Complaints of left upper abdominal pain and the feeling of pressure abdomen. Stated he was discharged on wed for kidney stones and feels as if it is the same pain. Denies vomiting but some nausea. Reports BM this morning and denies blood in urine. Positive bowel sounds x 4 quadrants. Complained of 8/10 pain, medicated with morphine per order.
[2022-06-25 09:34] LABS: Basophils Absolute Auto 0.1 X10*3/uL (0.0-0.2); Basophils Percent Auto 0.6 % (0-2); Eosinophils Absolute Auto 0.1 X10*3/uL (0.0-0.4); Eosinophils Percent Auto 1.1 % (0-4); Hematocrit 53.1 % (42.0-52.0); Hemoglobin 18.3 g/dl (14.0-18.0); Imm Gran Abs Auto 0.05 X10*3/uL (0.00-0.03); Imm Gran Pct Auto 0.6 % (0.0-0.4); Lymphocytes Absolute Auto 1.3 X10*3/uL (1.2-4.9); Lymphocytes Percent Auto 14.8 % (20-40); Mean Corpuscular HGB Conc 34.5 g/dl (31.0-36.0); Mean Corpuscular Hemoglobin 29.3 pg (27.0-33.0); Mean Platelet Volume 10.1 fL (9.4-12.4); Monocytes Absolute Auto 0.7 X10*3/uL (0.1-1.2); Monocytes Percent Auto 7.9 % (2-11); Neutrophils Absolute Auto 6.4 x10*3/uL (2.0-8.3); Platelet Count 201 X10*3/uL (160-400); Red Blood Count 6.25 X10*6/uL (4.60-5.80); Red Cell Distribution Width 13.1 % (11.0-16.0); White Blood Count 8.5 X10*3/uL (4.8-10.8)
[2022-06-25 09:53] LABS: Alanine Aminotransferase 32 U/L (0-40); Albumin Level 3.9 g/dL (3.5-5.0); Alkaline Phosphatase 60 U/L (39-117); Anion Gap 12 (12-20); Aspartate Amino Transferase 20 U/L (5-37); Bilirubin Direct 0.2 mg/dL (0.0-0.5); Bilirubin Total 0.6 mg/dL (0.0-1.0); Blood Urea Nitrogen 14 mg/dL (9-16); Calcium 9.1 mg/dL (8.4-10.2); Carbon Dioxide 27 mmol/L (22-29); Chloride 100 mmol/L (96-108); Creatinine Clr Calc Pharmacy 87.7; Estimated Glomerular Filt Rate > 60; Glucose Random 163 mg/dL (60-115); Lipase 46 U/L (8-78); Magnesium 1.9 mg/dL (1.6-2.6); Sodium 134 mmol/L (135-145); Total Protein 6.5 g/dL (6.5-8.0)
[2022-06-25 10:42] LABS: Appearance Urine Clear; Color Urine Yellow; Glucose Urine UA Negative (Negative); Leukocyte Esterase Urine Trace (Negative); Nitrite Urine Negative (Negative); UMIC TRIGGER UACC YES; Urine Blood Moderate (2+) (Negative); Urine Ketones Negative (Negative); Urine Protein 30 (1+) mg/dL (Neg-Trace)
[2022-06-25 10:47] LABS: Bacteria Urine None Seen (None Seen); Hyaline Casts Urine 0-2 /LPF (0-2); Squamous Epithelial Cell Urine 0-2 /HPF (0-2); WBC Urine 0-5 /HPF (0-5)
[2022-06-25 10:48] VITALS: BP 172/77; PULSE 108; RESP 20; O2SAT 94
[2022-06-25 11:37] VITALS: BP 140/64; PULSE 66; RESP 17; TEMP 36.6; O2SAT 92
[2022-06-25] MEDS: Ketorolac Tromethamine 15 MG/ML VIAL IVPUSH (11:45)
[2022-06-25 12:30] VITALS: BP 156/59; PULSE 62; RESP 17; O2SAT 92
--- NOTE | 2022-06-25 13:17 | PC.NURSE ---
alert and oriented. Reports pain is much improved. Discharge education provided to patient and
== END 2022-06-25 13:17 | disposition home or self-care (01) ==
PROVIDERS: Physician Assistant; Emergency Provider Emergency Medicine; PCP Internal Medicine
DX: R10.12 Left upper quadrant pain (principal); R31.9 Hematuria, unspecified
CPT/HCPCS: 36415; 80048; 80076; 81001; 83690; 83735; 85025; 96361; 96374; 96375; 96376; 99284; 99285; J1885; J2270; J2405